=== PATIENT | male | born 1985 | race Caucasian/White ===

== ENCOUNTER → 2021-02-16 11:59 | Outpatient (BNVA) | payer OTHER, SELFPAY | PROVIDERS: Visit Provider Nurse Practitioner Family | DX: Z20.822 Contact with and (suspected) exposure to COVID-19 (principal) | CPT/HCPCS: 87635 ==

== ENCOUNTER 2021-03-11 10:11 | Outpatient (CLI) | payer OTHER, SELFPAY ==
--- NOTE | 2021-03-11 11:00 | XR_ITS ---
WS: [id number] KNEE RIGHT TECHNIQUE: 2 views of the right knee CLINICAL INFORMATION: Chronic Bilateral knee, hip and shoulder pain COMPARISON: None. FINDINGS: Right knee is normal in appearance. No evidence of acute fracture dislocation. Mild soft tissue edema . Small suprapatellar effusion. Patella is normal. XR/XR knee RT 1-2V [id number] IMPRESSION: Mild soft tissue edema. Small suprapatellar effusion. Kellgren-Denilson Classification: grade 0 (none): definite absence of x-ray fiorella nges of osteoarthritis
--- NOTE | 2021-03-11 11:15 | XR_ITS ---
WS: [id number] SHOULDER RIGHT TECHNIQUE: 3 views of the right shoulder CLINICAL INFORMATION: Chronic Bilateral knee, hip and shoulder pain COMPARISON: None. FINDINGS: Normal acromioclavicular joint. Normal glenohumeral joint. Acromion is normal in appearance. Normal g lenoid. No evidence of acute fracture dislocation. XR/XR shoulder RT min 2V* [id number] IMPRESSION: Normal right shoulder.
== END 2021-03-11 10:12 | disposition home or self-care (01) ==
PROVIDERS: PCP Family Medicine Adult Medicine; Visit Provider Family Medicine Adult Medicine
DX: M25.562 Pain in left knee (principal); M25.561 Pain in right knee; M25.512 Pain in left shoulder; M25.511 Pain in right shoulder; R60.0 Localized edema; M25.461 Effusion, right knee
CPT/HCPCS: 73030; 73560

== ENCOUNTER → 2022-02-01 15:34 | Outpatient (BNVA) | payer BC, SELFPAY | PROVIDERS: PCP Family Medicine Adult Medicine; Visit Provider Emergency Medicine | DX: R34 Anuria and oliguria (principal); R53.83 Other fatigue; R11.2 Nausea with vomiting, unspecified | CPT/HCPCS: 80053; 85018; 85025 ==